=== PATIENT | female | born 1970 | race American Indian/Alaskan Native ===

== ENCOUNTER 2021-08-01 16:50 | Emergency (ER) | payer OTHER, MEDICAID ==
[~2021-08-01] VITALS: Ht 175.3 cm; Wt 81.6 kg
[2021-08-01 17:00] VITALS: BP_SYST 134
--- NOTE | 2021-08-01 18:00 | NUR ---
DR BETANCOURT IN [facility] TO EXAMINE PT.
[2021-08-01] MEDS ORDERED: IBUP-1969 PO (19:00)
[2021-08-01 19:06] VITALS: BP_SYST 134
--- NOTE | 2021-08-01 19:07 | NUR ---
Patient given written and verbal discharge instructions and verbalizes understanding. ER MD discussed with patient the results and treatment provided. Patient in stable condition. ID arm band removed. Rx of motrin given. Patient educated on pain management and to follow up with PMD. Pain Scale . Opportunity for questions provided and answered. Medication side effect fact sheet provided.
== END 2021-08-01 19:06 | disposition home or self-care (01) ==
LOC: SED 16:50
DX: S06.0X0A Concussion without loss of consciousness, initial encounter (principal); W22.8XXA Striking against or struck by other objects, initial encounter; Y93.89 Activity, other specified; Y92.89 Other specified places as the place of occurrence of the external cause; Y99.8 Other external cause status
CPT/HCPCS: 70450-TC; 76376; 99284